=== PATIENT | female | born 1980 | race Caucasian/White ===

== ENCOUNTER 2018-06-17 00:40 | Outpatient (CLI) | payer MEDICAID, SELFPAY ==
--- NOTE | 2018-06-17 09:50 | DI.US_ITS ---
SYMPTOMS/DIAGNOSIS: NEW OB 17 WKS, ANATOMY SURVEY OB ULTRASOUND: The fetus was in variable position during the exam. The biometric measurements correspond to 25 weeks 6 days. The placenta is anterior. No abnormalities are seen however the face was not optimally visualized. The amniotic fluid amount appears normal. IMPRESSION: Unremarkable survey. The patient is scheduled to return for additional imaging of the face on 06/19/18. Many abnormalities cannot be diagnosed. A normal exam does not exclude a congenital anomaly. Radiology No. [id number] LMP: Exam Date: 06/17/18 [facility] wks days on EDC ([facility]) 09/20/18 Confirmed: HISTORY: survey at 26 wks PREDICTED GESTATIONAL AGE NUMBER 25+6 weeks with a range of 23+6 week to 27+6 weeks. 1 Determined by___1STUS___LMP___HISTORY X wtd ave Info. pertaining to fetus # PLACENTA PRESENTATION Grade I Cephalic___ Anterior X Posterior___ Breech____ Right Left Transverse(head right___ Fundal___Low-lying___Previa___ Transverse(head left___ Varying X BIOMETRY AMNIOTIC FLUID BPD: 61 mm 24+6 weeks Normal HC: 232 mm 25+2 weeks AC: 225 mm 26+6 weeks FL: 48 mm 26 weeks AMNIOTIC FLUID INDEX >26 WK CRL: mm weeks Cisterna Magna: 6 mm CI: 0.77 RUQ: LUQ Cerebellum: 2.7 cm EFW: 917 grams Percentile RLQ: LLQ Total: cms Composite AGE= 25+6 wks EDC by US 09/24/18 BIOPHYSICAL PROFILE ANATOMY IDENTIFIED SCORE 0/2 Heart: 4-Chamber X Rate: 149 BPM LVOT: X RVOT: X Amniotic Fluid(>2cms)____ Stomach: X Kidneys: X Respirations (>30 secs) Bladder: X Post. Fossa: X Body Flex/Extension 3 vessel cord: X Ventricles: X cord insertion: X Lips: NS Extremity Flex/Extension spinal morphology: X Nose: NS Total Score= Palate: NS NS=not seen Needs to return for lips, nose, palate.
== END 2018-06-17 01:00 ==
PROVIDERS: PCP Nurse Practitioner; Visit Provider Obstetrics & Gynecology
DX: Z34.92 Encounter for supervision of normal pregnancy, unspecified, second trimester (principal)
CPT/HCPCS: 76805

== ENCOUNTER 2018-08-03 13:58 | Outpatient (CLI) | payer MEDICAID, SELFPAY ==
[2018-08-03 14:29] LABS: Abs Immature Grans 0.12 k/cumm (0.0-0.09); Absolute Basophil Count 0.04 k/cumm (0.0-0.2); Absolute Eosinophil Count 0.29 k/cumm (0.0-0.7); Absolute Lymphocyte Count 2.74 k/cumm (1.2-3.4); Absolute Monocyte Count 1.25 k/cumm (0.11-0.7); Basophils % 0.3; Eosinophils % 2.1; HCT 38.2 % (36.0-46.0); Immature Grans % 0.9; Lymphocytes % 19.5; Mean Platelet Volume 10.2 fL (8.0-11.0); Monocytes % 8.9; Neutrophils % 68.3; Platelet Count 292 x1000/uL (130-400); RBC 3.82 m/cumm (4.00-5.20); RBC Distribution Width 12.8 % (11.7-14.6); White Blood Cell Count 14.04 k/cumm (4.4-10.8)
[2018-08-03 14:37] LABS: Absolute Neutrophil Count 9.59 k/cumm (1.2-6.7)
[2018-08-03 15:36] LABS: TSH (W/Ref FT4) 3.85 uIU/mL (0.358-3.74)
[2018-08-04 09:04] LABS: Hepatitis C Ab w Rflx HCV PCR Negative (NEGAT)
[2018-08-04 09:19] LABS: Rubella IgG Ab (UVM) Positive; Syphilis Serology (RPR) Negative (Negative); Varicella IgG Antibody Positive
[2018-08-04 11:31] LABS: HIV-1/2 Ag & Ab Screen Negative (NEGAT); Hepatitis B Surface Ag Negative (NEGAT)
== END 2018-08-03 14:18 ==
PROVIDERS: PCP Nurse Practitioner; Visit Provider Obstetrics & Gynecology Gynecology
DX: Z34.92 Encounter for supervision of normal pregnancy, unspecified, second trimester (principal); Z11.4 Encounter for screening for human immunodeficiency virus [HIV]; Z01.84 Encounter for antibody response examination; Z11.59 Encounter for screening for other viral diseases
CPT/HCPCS: 36415; 80055; 86787; 86803; 86850; 86900; 86901; 87340; 87389; 84439; 84443; 86592; 86762

== ENCOUNTER 2018-08-03 14:33 | Outpatient (REF) | payer MEDICAID, SELFPAY ==
--- NOTE | 2018-08-03 13:40 | PAPFT_PTH ---
PATIENT: DINORAH ROTH LOC: [facility] U#:[id number] AGE/SX: 38/F ROOM: RE08/03/[address]: Alba Vega : 1980 BED: DIS: 08/03/2018 SPEC #: [id number] RECD: 08/03/18 17:40 STATUS: KARON REMelody #: [id number] SURJIT: 08/03/18 13:[address]: Alba Vega DEPT: [facility] Cytology RECD BY: Cinthia Segal ENTERED: 08/03/18 17:41 SP TYPE: PAPFT OT DR: Tamra Ramon APRN Tissues: 1 - CX/ENDOCX FOR PAP SMEARS Procedures: PAP THIN PREP/UVM Screening HPV DNA PROBE Comments: [id number]
[2018-08-03 16:29] LABS: *AMPHETAMINES SCREEN URINE Negative (Negative); *BARBITURATES SCREEN URINE Negative (Negative); *BENZODIAZEPINES SCREEN URINE Negative (Negative); Cannabinoids THC Negative (Negative); Cocaine Screen,Urine Negative (Negative); METHADONE URINE SCREEN Negative (Negative); OPIATES URINE SCREEN Negative (Negative)
[2018-08-03 16:32] LABS: Tricyclic Antidepressants Negative (Negative)
[2018-08-04 14:44] LABS: Chlamydia Result Negative; GC Result Negative; Specimen Description CERVIX
== END 2018-08-03 14:53 ==
LOC: LBN 14:33
PROVIDERS: PCP Nurse Practitioner; Visit Provider Obstetrics & Gynecology Gynecology
DX: Z34.92 Encounter for supervision of normal pregnancy, unspecified, second trimester (principal); Z11.3 Encounter for screening for infections with a predominantly sexual mode of transmission; Z12.4 Encounter for screening for malignant neoplasm of cervix; Z11.51 Encounter for screening for human papillomavirus (HPV)
CPT/HCPCS: 80307; 87491; 87591; 88142; 87086; 87624

== ENCOUNTER 2018-08-12 00:51 | Outpatient (CLI) | payer MEDICAID, SELFPAY ==
[2018-08-12 13:33] LABS: Glucose,1 Hr (Glucola) 121 mg/dL (80-140)
[2018-08-12 13:38] LABS: HCT 36.9 % (36.0-46.0); HGB 12.4 g/dL (12.0-15.5); Mean Corp. HGB Concentration 33.6 g/dL (32.0-36.0); Mean Corpuscular Hemoglobin 33.9 pg (27.0-33.0); Mean Corpuscular Volume 100.8 fL (80-95); Mean Platelet Volume 10.5 fL (8.0-11.0); Platelet Count 283 x1000/uL (130-400); RBC 3.66 m/cumm (4.00-5.20); RBC Distribution Width 12.7 % (11.7-14.6); White Blood Cell Count 14.46 k/cumm (4.4-10.8)
== END 2018-08-12 01:11 ==
PROVIDERS: Obstetrics & Gynecology; PCP Nurse Practitioner; Visit Provider Obstetrics & Gynecology Gynecology
DX: Z34.93 Encounter for supervision of normal pregnancy, unspecified, third trimester (principal)
CPT/HCPCS: 36415; 82950; 85027

== ENCOUNTER 2018-08-27 16:23 | Outpatient (REF) | payer MEDICAID, SELFPAY | END 2018-08-27 16:43 | LOC: LBN 16:23 | PROVIDERS: PCP Nurse Practitioner; Visit Provider Obstetrics & Gynecology Gynecology | DX: Z34.93 Encounter for supervision of normal pregnancy, unspecified, third trimester (principal); Z36.85 Encounter for antenatal screening for Streptococcus B | CPT/HCPCS: 87081 ==

== ENCOUNTER 2018-09-09 11:25 | Outpatient (CLI) | payer MEDICAID, SELFPAY ==
[2018-09-09 13:03] LABS: HCT 39.3 % (36.0-46.0); HGB 13.3 g/dL (12.0-15.5); Mean Corp. HGB Concentration 33.8 g/dL (32.0-36.0); Mean Corpuscular Hemoglobin 33.9 pg (27.0-33.0); Mean Corpuscular Volume 100.3 fL (80-95); Mean Platelet Volume 10.9 fL (8.0-11.0); Platelet Count 301 x1000/uL (130-400); RBC 3.92 m/cumm (4.00-5.20); RBC Distribution Width 12.8 % (11.7-14.6); White Blood Cell Count 13.44 k/cumm (4.4-10.8)
[2018-09-09 14:07] LABS: Anion Gap 10.6 mmol/L (3-11); BUN 8 mg/dL (7-18); CO2 25.4 mmol/L (21.0-32.0); CREATININE 0.53 mg/dL (0.55-1.02); Calcium 9.2 mg/dL (8.5-10.1); Chloride 105 mmol/L (98-107); Glucose 78 mg/dL (70-100); Potassium 4.5 mmol/L (3.5-5.1); Sodium 141 mmol/L (136-145)
== END 2018-09-09 11:45 ==
PROVIDERS: PCP Nurse Practitioner; Visit Provider Obstetrics & Gynecology Gynecology
DX: O34.219 Maternal care for unspecified type scar from previous cesarean delivery (principal); Z30.2 Encounter for sterilization; Z01.818 Encounter for other preprocedural examination
CPT/HCPCS: 36415; 80048; 85027; 86900; 86901

== ENCOUNTER 2018-09-16 06:13 | Inpatient (IN) | payer MEDICAID, SELFPAY ==
--- NOTE | 2018-09-15 17:44 | W.PM.PROGNOT ---
Date of Service Date of service: 09/09/18 Time of Service: 17:45 Assessment and Plan (1) Previous delivery affecting , antepartum: Current visit: No Status: Acute Informed consent was obtained she was informed of the risk of damage to surrounding structures including blood vessels and ureters, bowel bladder and uterus. She was counseled regarding the risk of infection. Lastly she was counseled regarding the risk of regret after tubal sterilization. Informed consent was obtained her questions were answered she was given instructions regarding n.p.o. status and preoperative labs will be obtained today with the type and screen to be obtained the morning of surgery. (2) Screening and evaluation for female sterilization: Current visit: No Status: Acute Subjective Patient reports: no new complaints Interval history since last seen: Patient is a 38-year-old female [facility] in anticipation of a repeat delivery tubal sterilization to be performed on 09/16/2017. Patient is accompanied by her partner Huey and their daughter Crystal. course - Presented for care at 33 weeks EGA. Total of 6 visits. - Initial blood pressure at 33 weeks 130/70. Blood pressure at 39 weeks 147/72. - S=D. - AMA. Patient was too late for aneuploidy testing. Normal morphology ultrasound except facial views. No images were repeated -Patient was counseled during this about repeat delivery. She requested permanent sterilization. Her federal Medicaid consent signed on 08/03/2018. -Patient declined smoking cessation support during this Past OB history -2 deliveries: 06/2002 and 12/2015. 12/1999 1419-week spontaneous . Exam Narrative Exam Narrative: She is comfortable with her decision to have a repeat delivery and tubal sterilization. She is aware that the sterilization is permanent and that it is not reversible. Patient states that she cannot foresee any time in the future she would want any more children even if her life circumstances were to change. Const General: no acute distress Nutritional Appearance: obese Orientation: alert and oriented x3 Neck Thyroid: thyroid normal Resp Effort & Inspection: normal respiratory effort Auscultation: clear to auscultation bilaterally Cardio Palpation: normal PMI Rhythm: regular rhythm Heart Sounds: S1 normal and S2 normal GI Inspection: normal to inspection and scar (Well-healed Pfannenstiel skin incision) Palpation: soft and no hepatosplenomegaly (Abdomen is gravid. No focal uterine tenderness) General: deferred Other: Fundal height 39 cm heart rate 140s by Doptone. Skin General skin exam: no rashes or lesions noted and other (Multiple tattoos) Extrem General: normal to inspection, full ROM and normal capillary refill Objective Objective Clinical Data: Vital Signs Respiratory Effort Non-Labored 09/09/18 11:44 Oxygen Delivery Method Room Air 09/09/18 11:44 Oxygen Flow Rate 0 09/09/18 11:44
[2018-09-16 06:25] VITALS: BP 126/67; PULSE 87; RESP 18; TEMP 36.8; O2SAT 98
[2018-09-16 06:33] VITALS: BP 126/67; PULSE 87; RESP 18; TEMP 36.8; O2SAT 98
[2018-09-16] MEDS: Lactated Ringers 1,000 ML 125 ML IV ×2 (06:51→08:11)
[2018-09-16] MEDS: ceFAZolin 2 GM/50 ML BAG IVPB (07:37)
--- NOTE | 2018-09-16 08:20 | FALL_PTH ---
PATIENT: DINORAH ROTH LOC: [facility] U#:[id number] AGE/SX: 38/F ROOM: OBS.306 RE09/16/[address]: Alba Vega : 1980 BED: A DIS: 09/18/2018 SPEC #: [id number] RECD: 09/16/18 12:54 STATUS: KARON REQ #: [id number] SURJIT: 09/16/18 08:[address]: Alba Vega DEPT: Surgical Specimen RECD BY: Cinthia Segal ENTERED: 09/16/18 12:55 SP TYPE: Fall OTHR DR: Tamra Ramon APRN Tissues: 1 - FALLOPIAN TUBE (STERILIZATION) 2 - FALLOPIAN TUBE (STERILIZATION) Procedures: GROSS AND MICRO LEVEL 2 Comments: [id number]
[2018-09-16] MEDS: Lactated Ringers 1,000 ML 120 ML IV ×2 (10:29→17:36)
[2018-09-16] MEDS: NALBUPHINE 5 MG in Normal Saline 50 ML 100 MG IVPB ×2 (12:26→17:31)
--- NOTE | 2018-09-16 13:18 | W.PM.OP ---
Date of service: 09/16/18 Time of Service: 13:18 Operative Note DATE OF PROCEDURE: 09/16/18 PRE-OP DIAGNOSIS: IUP at 39W3D EGA. Multiparity, desires sterilization POST-OP DIAGNOSIS: same PROCEDURE: Scheduled repeat low transverse delivery with bilateral tubal salpingectomy SURGEON: Abla Vega ASSISTING SURGEON: Gatito Garcia DIRECTOR MOTION PICTURE: Lupis Masters ANESTHESIA: spinal ESTIMATED BLOOD LOSS: 300 PATHOLOGY: none sent COMPLICATIONS: None Patient was transported to: floor Patient's condition: stable Indications: 38yo female with hx of two LTCS who was counseled and declined GUICHO. Pt requested bilateral tubal sterilization be performed at the time of the delivery. Findings: Viable male in the LOT presentation with clear amniotic fluid. Wt 7lbs 0 oz. Apgars 9/10. His name will be Ava Chavez. Nl ovaries, fallopian tubes and pelvis. Fine adhesions of the omentum to the anterior serosal surface of the uterus. Procedure Description: Patient was taken to the operating room where she was placed in the sitting position and spinal anesthesia was administered without difficulty. She was then placed in the dorsal-supine position with a leftward tilt, a Scherer catheter was inserted to gravity drainage she was prepped and draped in the usual sterile fashion. Lower extremity SCDs were in place. She received 2 g of Ancef prior to skin incision and surgical timeout was performed. After an adequate level of anesthesia was obtained was used to incise the previous Pfannenstiel skin incision scar. A sub-cutaneous tissue was then dissected using electrocautery to level the rectus fascia. Rectus fascia was nicked in the midline and the incision extended laterally using curved Jones scissors. 2 whit clamps were applied to the superior aspect of this incision and the rectus fascia was dissected off of the underlying rectus muscles using blunt technique and Bovie electrocautery. A similar technique was carried out on the superior aspect of this incision. Rectus muscles were then midline and the peritoneum entered bluntly. A bladder blade was then placed into the abdominal incision and the bladder retracted away from the operative field. The vesicouterine peritoneum was incised with Metzenbaum scissors, the incision was extended laterally, and bladder flap created digitally. A scalpel was used to make a transverse incision in the lower uterine segment. Upon entry into the uterine cavity the anterior placenta was incised and a single band was placed into the uterine cavity and the head delivered through the incision atraumatically with the assistance of fundal pressure. The shoulders, trunk and lower extremities were delivered without difficulty. Cord was doubly clamped and cut and the was handed off to the pediatric team. The placenta was delivered with a combination of fundal uterine massage and gentle cord traction. Uterus was then exteriorized cleared of all clots and debris's and the uterine incision was reapproximated with a running lock suture of 0 Vicryl followed by a second imbricating suture of 0 Vicryl. This resulted in excellent hemostasis. Attention was then turned to the patient's left fallopian tube was grasped with a Vishnu clamp followed out to its fimbriated end and clamped cauterized and transected using LigaSure device at the cornua region. LigaSure device was then used to cauterize and transect the fallopian tube attachments to the mesosalpinx and the tube was freed from all attachments and passed off of the operative field. A similar technique was carried out on the contralateral fallopian tube. Efficacious sterilization procedure both fallopian tube pedicles were inspected and noted to be hemostatic. Uterus was then returned to the abdomen where the paracolic gutters were cleared of all clots and debris's. The uterine incision was inspected and found to be hemostatic as was the bladder flap and the anterior abdominal wall. The abdominal peritoneum was re-approximated with a running suture of 2-0 Vicryl. The rectus fascia was then closed with 0 Vicryl extending from the lateral margins and overlapping in the midline. Subcutaneous tissue was closed with a running suture of 2-0 Vicryl and the skin closed with a subcuticular closure of 4-0 Vicryl. Patient had a 5 mm raised pigmented acrochordon 3 cm diagonal to her right lateral distal skin incision was removed with an elliptical incision and the skin closed with a subcuticular suture of 4-0 Vicryl. Skin glue was applied to both the Pfannenstiel skin incision and site of the skin tag excision. Uterus was massaged for any remaining clots debris's and the patient transferred to [facility] and transported to recovery area in stable condition. All sponge lap and needle counts are correct x2.
--- NOTE | 2018-09-16 13:28 | ROE_ITS ---
Date of service: 09/16/18 Time of Service: 13:18 Operative Note DATE OF PROCEDURE: 09/16/18 PRE-OP DIAGNOSIS: IUP at 39W3D EGA. Multiparity, desires sterilization POST-OP DIAGNOSIS: same PROCEDURE: Scheduled repeat low transverse delivery with bilateral tubal salpingectomy SURGEON: Alba Vega ASSISTING SURGEON: Gatito Garcia HEALTH ASSESSMENT AND TREATMENT TEACHER: Lupis Masters ANESTHESIA: spinal ESTIMATED BLOOD LOSS: 300 PATHOLOGY: none sent COMPLICATIONS: None Patient was transported to: floor Patient's condition: stable Indications: 38yo female with hx of two LTCS who was counseled and declined GUICHO. Pt requested bilateral tubal sterilization be performed at the time of the delivery. Findings: Viable male in the LOT presentation with clear amniotic fluid. Wt 7lbs 0 oz. Apgars 9/10. His name will be Ava Chavez. Nl ovaries, fallopian tubes and pelvis. Fine adhesions of the omentum to the anterior serosal surface of the uterus. Procedure Description: Patient was taken to the operating room where she was placed in the sitting position and spinal anesthesia was administered without difficulty. She was then placed in the dorsal-supine position with a leftward tilt, a Scherer catheter was inserted to gravity drainage she was prepped and draped in the usual sterile fashion. Lower extremity SCDs were in place. She received 2 g of Ancef prior to skin incision and surgical timeout was performed. After an adequate level of anest hesia was obtained was used to incise the previous Pfannenstiel skin incision scar. A sub-cutaneous tissue was then dissected using electrocautery to level the rectus fascia. Rectus fascia was nicked in the midline and the incision extended laterally using curved Jones scissors. 2 whit clamps were applied to the superior aspect of this incision and the rectus fascia was dissected off of the underlying rectus muscles using blunt technique and Bovie electrocautery. A similar technique was carried out on the superior aspect of this incision. Rectus muscles were then midline and the peritoneum entered bluntly. A bladder blade was then placed into the abdominal incision and the bladder retracted away from the operative field. The vesicouterine peritoneum was incised with Metzenbaum scissors, the incision was extended laterally, and bladder flap created digitally. A scalpel was used to make a transverse incision in the lower uterine segment. Upon entry into the uterine cavity the anterior placenta was incised and a single band was placed into the uterine cavity and the head delivered through the incision atraumatically with the assistance of fundal pressure. The shoulders, trunk and lower extremities were delivered without difficulty. Cord was doubly clamped and cut and the infant was handed off to the pediatric team. The placenta was delivered with a combination of fundal uterine massage and gentle cord traction. Uterus was then exteriorized cleared of all clots and debris's and the uterine incision was reapproximated with a running lock suture of 0 Vicryl followed by a second imbricating suture of 0 Vicryl. This resulted in excellent hemostasis. Attention was then turned to the patient's left fallopian tube was grasped with a Carthage clamp followed out to its fimbriated end and clamped cauterized and transected using LigaSure device at the cornua region. LigaSure device was then used to cauterize and transect the fallopian tube attachments to the mesosalpinx and the tube was freed from all attachments and passed off of the operative field. A similar technique was carried out on the contralateral fallopian tube. Efficacious sterilization procedure both fallopian tube pedicles were inspected and noted to be hemostatic. Uterus was then returned to the abdomen where the paracolic gutters were cleared of all clots and debris's. The uterine incision was inspected and found to be hemostatic as was the bladder flap and the anterior abdominal wall. The abdominal peritoneum was re-approximated with a running suture of 2-0 Vicryl. T he rectus fascia was then closed with 0 Vicryl extending from the lateral margins and overlapping in the midline. Subcutaneous tissue was closed with a running suture of 2-0 Vicryl and the skin closed with a subcuticular closure of 4-0 Vicryl. Patient had a 5 mm raised pigmented acrochordon 3 cm diagonal to her right lateral distal skin incision was removed with an elliptical incision and the sk in closed with a subcuticular suture of 4-0 Vicryl. Skin glue was applied to both the Pfannenstiel skin incision and site of the skin tag excision. Uterus was massaged for any remaining clots debris's and the patient transferred to [facility] and transported to recovery area in stable condition. All sponge lap and needle counts are correct x2.
[2018-09-16] MEDS: Ondansetron 4 MG/2 ML VIAL IVP (13:46)
[2018-09-16] MEDS: Ketorolac 30 MG/ML VIAL IVP ×2 (13:56→19:59)
[2018-09-16] MEDS: Normal Saline Flush 10 ML SYR IVP (13:57)
[2018-09-16] MEDS: Scopolamine 1 MG/3 DAYS PATCH TD (14:58)
[2018-09-16] MEDS: Nicotine 2 MG LOZG SUC ×2 (14:58→21:47)
[2018-09-16] MEDS: oxyCODONE 5 mg/Acetaminophen 325 mg TAB PO ×2 (18:54→22:26)
[2018-09-17] MEDS: Ketorolac 30 MG/ML VIAL IVP (02:09)
[2018-09-17] MEDS: oxyCODONE 5 mg/Acetaminophen 325 mg TAB PO ×5 (03:48→20:33)
[2018-09-17] MEDS: Nicotine 2 MG LOZG SUC ×4 (05:37→22:32)
[2018-09-17 07:15] LABS: HCT 34.5 % (36.0-46.0); HGB 11.3 g/dL (12.0-15.5); Mean Corp. HGB Concentration 32.8 g/dL (32.0-36.0); Mean Corpuscular Hemoglobin 33.2 pg (27.0-33.0); Mean Corpuscular Volume 101.5 fL (80-95); Mean Platelet Volume 10.8 fL (8.0-11.0); Platelet Count 288 x1000/uL (130-400); RBC Distribution Width 12.8 % (11.7-14.6); White Blood Cell Count 18.42 k/cumm (4.4-10.8)
[2018-09-17] MEDS: Docusate Sodium 100 MG CAP PO ×2 (10:10→22:31)
[2018-09-17] MEDS: Ibuprofen 600 MG TAB PO (20:30)
[2018-09-17] MEDS: Acetaminophen 325 MG TAB 650 MG PO (22:31)
[2018-09-18] MEDS: oxyCODONE 5 mg/Acetaminophen 325 mg TAB PO ×3 (00:30→08:37)
[2018-09-18] MEDS: Acetaminophen 325 MG TAB 650 MG PO (02:27)
[2018-09-18] MEDS: Ibuprofen 600 MG TAB PO ×2 (02:28→08:37)
[2018-09-18] MEDS: Nicotine 2 MG LOZG SUC ×2 (03:45→10:36)
[2018-09-18] MEDS: Docusate Sodium 100 MG CAP PO (08:39)
[2018-09-18 10:15] LABS: TSH (W/Ref FT4) 11.33 uIU/mL (0.358-3.74)
[2018-09-18 10:34] LABS: FREE T4 0.56 ng/dL (0.76-1.46)
[2018-09-18 12:37] LABS: Bilirubin Negative (Negative); Blood Moderate (Negative); Clarity Clear; Glucose Negative (Negative); Ketones Negative (Negative); Leukocyte Esterase Negative (Negative); Nitrite Negative (Negative); Urobilinogen 0.2 EU/dL (Up TO 0.2)
[2018-09-18 12:58] LABS: Epithelial Cells Rare HPF (Negative)
[2018-09-18 12:59] LABS: Bacteria Negative HPF (Negative); C & S Indicated? C&S Done As Ordered; Casts Negative LPF (Negative); Crystals Negative HPF (Negative); Mucus Negative (Negative)
== END 2018-09-18 13:07 | disposition home or self-care (01) | DRG 785 ==
LOC: PDS 06:14 → OBS 10:21
PROVIDERS: Obstetrics & Gynecology; Admitting Provider Obstetrics & Gynecology Gynecology; PCP Nurse Practitioner; Visit Provider Obstetrics & Gynecology Gynecology
PROC: 10D00Z1 Extraction of Products of Conception, Low, Open Approach (ICD-10-PCS; CPT 59514; principal; 2018-09-16 07:30)
DX: O34.211 Maternal care for low transverse scar from previous cesarean delivery (principal); O99.334 Smoking (tobacco) complicating childbirth; Z37.0 Single live birth; O99.284 Endocrine, nutritional and metabolic diseases complicating childbirth; Z30.2 Encounter for sterilization; Z3A.39 39 weeks gestation of pregnancy; F17.210 Nicotine dependence, cigarettes, uncomplicated; E03.9 Hypothyroidism, unspecified
CPT/HCPCS: 59514; 58611; 36415; 85027; 86850; 86900; 86901; NC; 81003; 81015; 84439; 84443; 87086; 88302; J0690; J1100; J1200; J1885; J2405; J2590; J3010; J3490

== ENCOUNTER 2020-03-31 09:13 | Emergency (ER) | payer MEDICAID, SELFPAY ==
[2020-03-31] VITALS (31 sets, daily range): BP systolic 131–154; BP diastolic 60–89; PULSE 56–81; RESP 9–20; TEMP 36.8; O2SAT 96–100
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
[2020-03-31] MEDS: Normal Saline 1,000 ML 1000 ML IV (10:00)
[2020-03-31 10:03] LABS: Abs Immature Grans 0.02 10^3/uL (0.0-0.06); Absolute Basophil Count 0.08 10^3/uL (0.0-0.2); Absolute Eosinophil Count 0.28 10^3/uL (0.0-0.7); Absolute Lymphocyte Count 2.35 10^3/uL (1.2-3.4); Absolute Monocyte Count 0.67 10^3/uL (0.1-0.8); Absolute Neutrophil Count 5.69 10^3/uL (1.2-6.7); Basophils % 0.9; Eosinophils % 3.1; HCT 42.6 % (36.0-46.0); HGB 14.1 g/dL (11.2-15.7); Immature Grans % 0.2; Lymphocytes % 25.9; MCH 32.2 pg (27.0-33.0); MCHC 33.1 % (32.0-36.0); MCV 97.3 fL (80-95); MPV 10.3 fL (8.0-11.0); Monocytes % 7.4; Neutrophils % 62.5; Nucleated RBC 0 %; Platelet Count 311 10^3/uL (130-400); RBC 4.38 10^6/uL (3.93-5.22); RDW 12.4 % (11.7-14.6); RDW-SD 44.3 fL; WBC 9.09 10^3/uL (4.4-10.8)
[2020-03-31 10:23] LABS: ALT 11 U/L (14-59); AST 15 U/L (15-37); Albumin 3.3 g/dL (3.4-5.0); Alkaline Phosphatase 61 U/L (46-116); BUN 12 mg/dL (7-18); Bilirubin, Total 0.4 mg/dL (0.2-1.0); CREATININE 0.64 mg/dL (0.55-1.02); Calcium 8.6 mg/dL (8.5-10.1); Chloride 105 mmol/L (98-107); Glucose 90 mg/dL (74-106); Lipase 46 U/L (73-393); Potassium 3.7 mmol/L (3.5-5.1); Sodium 140 mmol/L (136-145)
[2020-03-31 10:28] LABS: HCG Qual (Serum) Negative
[2020-03-31] MEDS: Omnipaque 350 MG/ML 100 ML BTL IV (10:57)
[2020-03-31] MEDS: Normal Saline - Diluent 50 ML VIAL IV ×2 (10:59→11:00)
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
[2020-03-31] MEDS: Ketorolac 30 MG/ML VIAL IVP (12:38)
[2020-03-31] MEDS: oxyCODONE 5 MG TAB PO (12:38)
--- NOTE | 2020-03-31 13:04 | NUR.NOTE ---
Nursing Note: referal senty to care management to make appt next week 03/31/20
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
--- NOTE | 2020-04-05 13:04 | NUR.NOTE ---
Nursing Note: Patient called today stating that she needed a referral to Ortho and ENT before she can make an appt. I faxed the referrals to those offices. Fanny Diamond
== END 2020-03-31 13:30 | disposition home or self-care (01) ==
PROVIDERS: Emergency Provider Physician Assistant; PCP Nurse Practitioner
DX: S42.022A Displaced fracture of shaft of left clavicle, initial encounter for closed fracture (principal); S02.2XXA Fracture of nasal bones, initial encounter for closed fracture; S70.02XA Contusion of left hip, initial encounter; R93.0 Abnormal findings on diagnostic imaging of skull and head, not elsewhere classified; V48.6XXA Car passenger injured in noncollision transport accident in traffic accident, initial encounter
CPT/HCPCS: 36415; 73552; 74177; 80053; 83690; 96361; 96374; 96375; 99285; 70450; 70486; 71260; 72125; 84703; 85025; J1885; J3490; L0172; L3650

== ENCOUNTER 2020-04-12 09:23 | Outpatient (CLI) | payer MEDICAID, SELFPAY ==
--- NOTE | 2020-04-12 08:30 | DI.RAD_ITS ---
EXAM: XR CLAVICLE LT CLINICAL HISTORY: Clavicle pain TECHNIQUE: COMPARISON: No exams were available for comparison FINDINGS: Two views were obtained. There is a moderately comminuted moderately displaced fracture of the dista l 3rd of the clavicle. Acromioclavicular joint appears intact. No other fracture seen. IMPRESSION: RADIATION DOSE DELIVERED: Total DLP
== END 2020-04-12 09:43 ==
PROVIDERS: PCP Nurse Practitioner; Visit Provider Student in an Organized Health Care Education/Training Program
DX: S42.032A Displaced fracture of lateral end of left clavicle, initial encounter for closed fracture (principal)
CPT/HCPCS: 73000

== ENCOUNTER 2020-04-12 09:56 | Outpatient (CLI) | payer MEDICAID, SELFPAY ==
[2020-04-15 13:29] LABS: COVID-19 RT-PCR Result Negative
== END 2020-04-12 10:16 ==
PROVIDERS: PCP Nurse Practitioner; Visit Provider Student in an Organized Health Care Education/Training Program
DX: Z11.59 Encounter for screening for other viral diseases (principal); Z01.818 Encounter for other preprocedural examination
CPT/HCPCS: U0003

== ENCOUNTER 2020-04-14 08:20 | Day surgery (SDC) | payer MEDICAID, SELFPAY ==
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
[2020-04-14] VITALS (8 sets, daily range): BP systolic 98–177; BP diastolic 55–85; PULSE 56–68; RESP 9–20; TEMP 36.4–36.7; O2SAT 95–99
--- NOTE | 2020-04-14 09:45 | DI.RAD_ITS ---
EXAM: XR CLAVICLE LT LIMITED 1V CLINICAL HISTORY: LEFT CLAVICAL FRACTURE TECHNIQUE: 2D and realtime digital imaging was performed. COMPARISON: CR XR CLAVICLE LT from 04/12/2020 FINDINGS: C-arm fluoroscopy was utilized by Dr. Gray during open reduction internal fixation of fracture of th e clavicle. Hard copy show plate and screw fixation of the clavicle with the fracture fragments in g ood position. Fluoro time, 27.2 seconds. IMPRESSION: RADIATION DOSE DELIVERED: Total DLP
[2020-04-14] MEDS: Bupivacaine 0.5% Pres-Free 30 ML VIAL (09:50)
[2020-04-14] MEDS: Lactated Ringers 1,000 ML 100 ML IV (10:06)
[2020-04-14] MEDS: ceFAZolin 2 GM/50 ML BAG IVPB (10:06)
[2020-04-14] MEDS: Bupivacaine 0.25% Pres-Free 30 ML VIAL (10:50)
[2020-04-14] MEDS: EPINEPHrine 1 MG/ML AMP pres-free (10:51)
--- NOTE | 2020-04-14 13:00 | W.PM.DSUDISC ---
Discharge Plan Disposition Patient Disposition: HOME Condition: Stable Discharge Details Reason For Visit: DISPLACED CLAVICLE FX Attending Provider: Vishnu Gray Primary Care Provider: Tamra Ramon Home Meds and New Rx's Prescriptions: New aspirin 81 mg tablet,delayed release (DR/EC) 81 mg PO DAILY 14 Days Qty: 14 RF: 0 ibuprofen 800 mg tablet 800 mg PO BID PRN (Reason: pain, moderate) Qty: 60 RF: 0 oxycodone 5 mg tablet 5 - 10 mg PO Q4H PRN (Reason: moderate to severe pain) Qty: 18 RF: 0 ondansetron 4 mg tablet,disintegrating 4 mg PO Q6H PRN (Reason: nausea or vomiting) Qty: 5 RF: 0 Continued acetaminophen [Tylenol] 325 mg Tablet 650 mg PO Q4H PRN PRNQty: 30 RF: 0 ibuprofen 200 mg Tablet 800 mg PO TID PRNRF: 0 oxycodone 5 mg tablet 5 mg PO BID PRNRF: 0 albuterol 90 mcg/actuation Aerosol 180 mcg INHALATION Q4H PRN PRNRF: 0 Discharge Instructions Stand Alone Forms: Kike Drew (DSU) Discharge Orders Discharge Orders: Discharge Order (Routine); Ordered 04/14/20 Ordered By: Vishnu Gray DS: Diagnosis Discharge Diagnosis (1) Clavicle fracture: Status: Acute
[2020-04-14] MEDS: HYDROmorphone 2 MG/ML VIAL IVP (13:04)
--- NOTE | 2020-04-14 13:27 | ROE_ITS ---
Date of service: 04/14/20 Time of Service: 13:03 Operative Note Operative Note DATE OF PROCEDURE: 04/14/20 PRE-OP DIAGNOSIS: 1. Left displaced clavicle shaft fracture POST-OP DIAGNOSIS: same PROCEDURE: 1. Left clavicle ORIF, CPT #87936 SURGEON: Vishnu Gray [employer]ORED CAR GUARD AND DRIVER: Serenity Monae ANESTHESIA: GETA, regional and local ESTIMATED BLOOD LOSS: 15 COMPLICATIONS: None Patient was transported to: PACU Patient's condition: stable Implants: Synthes 3.5 mm LCP superior anterior clavicle plate with lateral extension and 3x bicortical 3.5 mm cortex screws medially, 2x 2.4 mm cortex screws laterally, and 3x 2.7 mm locking screws laterally Indications: Please see complete medical record for details. Findings: Widely displaced, comminuted distal diaphyseal clavicle fracture Procedure Description: In the operating room, general anesthesia was induced. The patient was positioned supine on the operating room table. All bony prominences were well-padded. Preoperative antibiotics were administered. The left shoulder was prepped and draped in the usual sterile fashion. The correct patient, procedure, and side of the procedure were all verified prior to incision. 30cc of 0.25% bupivicaine containing epinephrine was infiltrated about the fracture site and planned incision area, which was localized under fluoroscopic guidance. Sharp dissection was carried full-thickness down to clavicle bone. There were no supraclavicular nerve to preserve. The fracture was identified and debrided of soft callus. Superior and anterior aspects of the medial and lateral clavicle were cleared of soft tissue in a limited fashion to preserve as much as possible. Bone forceps were used to manipulate the fracture ends into nearly anatomic position. There is significant anterior bone loss comminution. With the main fragments reduced, the anterior comminuted pieces were reduced relatively, and the fracture site was provisionally secured using suture tape in a cerclage fashion. C-arm fluoroscopy confirmed excellent reduction. An appropriate length anterior superior clavicle plate with lateral extension was selected and contoured to match the patient's anatomy. Cortex screws were used to compress the plate to bone starting with 1 medial to the fracture site into lateral to the fracture site. Next the additional 2 cortex screw holes were filled with bicortical 3.5 millimeter screws and the locking guide was used to place 3 additional 2.7 interlocking screws laterally. All screws were final tightened. Construct was tested and found to be secure and stable so the initial cortex screws were left laterally and no additional screws were placed. Final C-arm fluoroscopy orthogonal views confirmed excellent fracture site reduction and appropriate hardware placement and length of screws. The wound was copiously irrigated normal saline. 2-0 Monocryl was used to close the full-thickness platysma and subcutaneous layer in a buried interrupted fashion. Skin was closed in 3-0 Monocryl in a running subcuticular layer. Skin glue was applied over the incision and covered with a Mepilex bandage once dried. The patient awoke from anesthesia without complication and was transferred to the recovery room in a stable condition.
[2020-04-14] MEDS: oxyCODONE 5 MG TAB PO (13:39)
== END 2020-04-14 14:50 | disposition home or self-care (01) ==
PROVIDERS: PCP Nurse Practitioner; Visit Provider Student in an Organized Health Care Education/Training Program
PROC: (CPT 23515; principal; 2020-04-14 10:00)
DX: S42.032A Displaced fracture of lateral end of left clavicle, initial encounter for closed fracture (principal); V89.2XXA Person injured in unspecified motor-vehicle accident, traffic, initial encounter; K21.9 Gastro-esophageal reflux disease without esophagitis; E03.9 Hypothyroidism, unspecified; J45.909 Unspecified asthma, uncomplicated
CPT/HCPCS: 23515; 76942; 73000; J0171; J0690; J1100; J1885; J2001; J2250; J2405; L3650

== ENCOUNTER 2020-05-03 15:02 | Outpatient (CLI) | payer MEDICAID, SELFPAY ==
--- NOTE | 2020-05-03 11:30 | DI.RAD_ITS ---
EXAM: XR CLAVICLE LT CLINICAL HISTORY: L clavicle fx. TECHNIQUE: 2D digital imaging was performed. COMPARISON: CR XR CLAVICLE LT from 04/12/2020 XR CLAVICLE LT LIMITED 1V from 04/14/2020 FINDINGS: BONES: There are stable post operative changes present. No new fracture or dislocation. JOINTS: The joint spaces are well maintained. No joint effusion is present. SOFT TISSUE: Normal. IMPRESSION: Stable postoperative changes. DATA REPOSITORY: RADIATION DOSE DELIVERED:
== END 2020-05-03 15:22 ==
PROVIDERS: PCP Nurse Practitioner; Referring Provider Nurse Practitioner; Visit Provider Physician Assistant
DX: S42.002A Fracture of unspecified part of left clavicle, initial encounter for closed fracture (principal)
CPT/HCPCS: 73000